=== PATIENT | male | born 1975 | race Caucasian/White ===

== ENCOUNTER 2023-02-05 18:05 | Emergency (ER) | payer SELFPAY ==
[2023-02-05 18:12] VITALS: BP 216/112; PULSE 108; RESP 18; TEMP 37.2; O2SAT 98; BMI 26.4
--- NOTE | 2023-02-05 18:28 | ECG_ITS ---
APPROVED REPORT Exam: Resting ECG HR:85 bpm ECG Measurements Heart Rate 85 AXES LA 160 P 43 QRSd 93 QRS 76 QT 358 T 56 QTc 400 Conclusion SINUS RHYTHM WITH SINUS ARRHYTHMIA NORMAL ECG UNCONFIRMED REPORT Electronically signed by : Pee Tomlin MD 02/06/2023 07:22:54
[2023-02-05 18:30] VITALS: BP 189/115; PULSE 100; O2SAT 97
--- NOTE | 2023-02-05 19:19 | XR_ITS ---
PROCEDURE INFORMATION: Exam: XR Chest Exam date and time: 02/05/2023 7:20 PM Age: 47 years old Clinical indication: Shortness of breath; Patient HX: Smokes; Additional info: Diaphoretic TECHNIQUE: Imaging protocol: Radiologic exam of the chest. Views: 1 view. COMPARISON: No relevant prior studies available. FINDINGS: Lungs: Unremarkable. No consolidation. Pleural spaces: Unremarkable. No pleural effusion. No pneumothorax. Heart/Mediastinum: Unremarkable. No cardiomegaly. Bones/joints: Unremarkable. IMPRESSION: No acute findings.
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
[2023-02-05 19:49] LABS: Coronavirus 19, PCR Not Detected (NotDetected); Influenza A, PCR Not Detected (NotDetected); Influenza B, PCR Not Detected (NotDetected)
[2023-02-05 20:04] LABS: Chloride 107 mmol/L (98-107); Potassium 3.7 mmoL/L (3.5-5.1); Sodium 141 mmol/L (136-145)
[2023-02-05 20:05] LABS: Basophils % 0.2 % (0.1-2.0); Benzodiazepines Screen,Urine Negative ng/ml (<200); Eosinophils # 0.1 K/mm3 (0.0-0.4); Eosinophils % 0.6 % (0.1-12.0); Hematocrit 43.5 % (42.0-52.0); Hemoglobin 14.2 g/dL (14.1-18.0); Lymphocytes # 0.9 K/mm3 (0.7-4.5); Mean Corpuscular HGB Conc 32.7 g/dL (31.8-35.4); Mean Corpuscular Hemoglobin 29.4 pg (27.0-31.2); Mean Corpuscular Volume 90.2 fl (80-94); Mean Platelet Volume 8.2 fl (7.4-10.4); Monocytes # 0.5 K/mm3 (0.1-1.0); Monocytes % 3.8 % (1.7-9.3); Neutrophils # 11.6 K/mm3 (1.8-7.8); Neutrophils % 88.4 % (37.0-80.0); Platelet Count 205 K/mm3 (142-424); Red Blood Count 4.83 M/mm3 (4.60-6.20); Red Cell Distribution Width 13.1 % (11.5-17.5); White Blood Count 13.1 K/mm3 (4.8-10.8)
[2023-02-05 20:06] LABS: Amphetamine/Metha Screen,Urine Negative ng/ml (<1000); Barbiturates Screen,Urine Negative ng/ml (<200); Blood Urea Nitrogen 13 mg/dl (9-20); Creatinine Clearance Estimated 125 mL/min (50-200); Estimated Glomerular Filt Rate 80 ml/min (>60); GFR (African American) 97 ML/MIN (>60)
[2023-02-05 20:07] LABS: Alanine Aminotransferase 26 U/L (12-78); Albumin Level 4.1 g/dl (3.5-5.0); Albumin/Globulin Ratio 1.5 (1.1-1.8); Alkaline Phosphatase 88 U/L (38-126); Anion Gap 10.7 mEq/L (5-15); Aspartate Amino Transferase 36 U/L (17-59); Bilirubin,Total 0.4 mg/dl (0.2-1.3); Calcium 9.5 mg/dl (8.4-10.2); Cannabinoid Screen,Urine Positive ng/ml (<50); Carbon Dioxide 27 mmol/L (22.0-30.0); Creatine Kinase 148 U/L (55-170); Globulin 2.8 g/dL (1.3-3.2); Glucose 78 mg/dl (74-100); Methadone Screen,Urine Negative ng/ml (<300); Total Protein,Serum 6.9 g/dl (6.3-8.2)
[2023-02-05 20:08] LABS: Cocaine Screen,Urine Negative ng/ml (<300)
[2023-02-05 20:09] LABS: Opiate Screen,Urine Negative ng/ml (<300); Phencyclidine Screen,Urine Negative ng/ml (<25)
[2023-02-05 20:10] LABS: Acetaminophen < 10 ug/ml (10-30); Ethyl Alcohol < 10 mg/dl (0-10); MANUAL DIFFERENTIAL MANUAL DIFFERENTIAL (MANUAL DIFF); Salicylate < 1.0 mg/dL (2.0-20.0)
[2023-02-05 20:25] LABS: Troponin I < 0.01 ng/ml (0.00-0.034)
[2023-02-05 20:28] LABS: T4 (Thyroxine) 10.7 ug/dl (5.53-11.0)
[2023-02-05 20:32] LABS: Lymphocytes % 12 % (10-50); Monocytes % 1 % (2-9); Neutrophils % 87 % (42-76); Platelet Estimate Normal; RBC Morphology Normal; Total Cells Counted 100
--- NOTE | 2023-02-05 20:34 | PC.NURSE ---
faxed a copy of [phone]
[2023-02-05 20:42] LABS: Thyroid Stimulating Hormone 0.67 uIU/mL (0.465-4.68)
--- NOTE | 2023-02-05 21:51 | PC.NURSE ---
call placed to judge maradiaga [phone]
--- NOTE | 2023-02-05 22:00 | PC.NURSE ---
judge Goodwin called and needed the email resent so he is able to fax the involuntary hold papers back.
--- NOTE | 2023-02-05 22:52 | PC.NURSE ---
spoke with Jung Gamez they instructed to wait for a call from [facility]
--- NOTE | 2023-02-05 23:06 | PC.NURSE ---
faxed pt info to [facility]
--- NOTE | 2023-02-05 23:18 | PC.NURSE ---
I spoke with Giancarlo Rodriguez at [facility]. He has received the documents. Giancarlo states he will get the chart open and will call back in 15-20 minutes.
--- NOTE | 2023-02-05 23:39 | PC.NURSE ---
pt in zoom with Giancarlo for evaluation
[2023-02-06 01:01] VITALS: BP 135/76; PULSE 64; RESP 20; TEMP 37; O2SAT 98
== END 2023-02-06 00:45 ==
PROVIDERS: Emergency Provider Emergency Medicine
DX: F98.9 Unspecified behavioral and emotional disorders with onset usually occurring in childhood and adolescence (principal); R44.3 Hallucinations, unspecified; F17.210 Nicotine dependence, cigarettes, uncomplicated
CPT/HCPCS: 71045; 80053; 80305; 80329; 82550; 84436; 84443; 84484; 85007; 85025; 87636; 93005; 96360; 99285